=== PATIENT | female | born 1975 | race Caucasian/White ===

== ENCOUNTER 2018-10-01 08:26 | Outpatient (CLI) | payer MEDICAID ==
[2018-10-01 08:42] LABS: BASOPHILS % (AUTO) 0.9 %; EOSINOPHILS # (AUTO) 0.1 10^3/uL (0.0-0.7); EOSINOPHILS % (AUTO) 2.6 %; HGB - HEMOGLOBIN 13.3 g/dL (12.0-16.0); LYMPHOCYTES # (AUTO) 1.8 10^3/uL (1.5-3.5); LYMPHOCYTES % (AUTO) 38.6 %; MEAN CORPUSCULAR HEMOGLOBIN 32.1 pg (27.0-31.0); MEAN CORPUSCULAR HGB CONC 34.1 g/dL (32.0-36.0); MEAN PLATELET VOLUME 8.4 fL (7.9-10.8); MONOCYTES # (AUTO) 0.5 10^3/uL (0.0-1.0); MONOCYTES % (AUTO) 11.4 %; NEUTROPHILS # (AUTO) 2.1 10^3/uL (1.5-6.6); NEUTROPHILS % (AUTO) 46.5 %; PLT - PLATELET COUNT 212 10^3/uL (130-450); RED BLOOD COUNT 4.13 10^6/uL (4.20-5.40); RED CELL DISTRIBUTION WIDTH 12.1 % (12.0-15.0); WHITE BLOOD COUNT 4.6 x10^3/uL (4.8-10.8)
[2018-10-01 08:46] LABS: BILIRUBIN,URINE NEGATIVE (NEGATIVE); GLUCOSE, URINE (UA) NEGATIVE (NEGATIVE); KETONES,URINE (UA) NEGATIVE (NEGATIVE); LEUKOCYTE ESTERASE, URINE NEGATIVE (NEGATIVE); NITRITE,URINE NEGATIVE (NEGATIVE); OCCULT BLOOD,URINE MODERATE (NEGATIVE); PH,URINE 6.5 PH (5.0-7.5); PROTEIN,URINE NEGATIVE (NEGATIVE); UROBILINOGEN,URINE 0.2 (NORMAL) E.U./dL (NORMAL)
[2018-10-01 08:47] LABS: CLARITY,URINE HAZY (CLEAR)
[2018-10-01 09:04] LABS: CHOLESTEROL 169 mg/dL; GLUCOSE,FASTING 93 mg/dL (70-100); HDL CHOLESTEROL 56 mg/dL; LDL CHOLESTEROL,CALCULATED 97 mg/dL; LDL/HDL RATIO 1.7 (<4.4); VLDL CHOLESTEROL 16 mg/dL
[2018-10-01 09:42] LABS: BACTERIA,URINE Rare /HPF (None Seen); RBC,URINE 0-5 /HPF (0-5); SQUAMOUS EPITHELIAL CELL,UR FEW Squamous (<= Few)
== END 2018-10-01 08:27 | disposition home or self-care (01) ==
LOC: LAB 08:26
PROVIDERS: ATTEND Obstetrics & Gynecology
DX: Z13.89 Encounter for screening for other disorder (principal); Z01.419 Encounter for gynecological examination (general) (routine) without abnormal findings; R10.2 Pelvic and perineal pain; Z13.0 Encounter for screening for diseases of the blood and blood-forming organs and certain disorders involving the immune mechanism
CPT/HCPCS: 36415; 80061; 81001; 82947; 83721; 85025; 87086

== ENCOUNTER 2018-10-19 15:48 | Outpatient (CLI) | payer MEDICAID ==
--- NOTE | 2018-10-20 10:58 | Ultrasound Report ---
Reason: PELVIC PAIN Procedure Date: 10/19/2018 Accession Number: [id number] / [id number] Procedure: US - Pelvic w/Transvaginal CPT Code: FULL RESULT: EXAM: PELVIC ULTRASOUND EXAM DATE: 10/19/2018 05:10 PM. CLINICAL HISTORY: Pelvic pain. COMPARISON: None. TECHNIQUE: Realtime transabdominal pelvic scan performed to identify the uterus and adnexa and as an overview of other pelvic structures, followed by transvaginal scan to provide greater detail of the uterus and adnexa, with static image documentation. FINDINGS: Uterus: 10.6 x 5.8 x 6.9 cm, volume 222 cc. Anteverted position. Normal overall size and echotexture. Masses: A few ill-defined myometrial masses are seen measuring 2.4 x 1.8 x 1.9 and 2.3 x 2.1 x 2.8 cm respectively in the left fundus and posterior right fundus respectively. These likely represent fibroids. Endometrium: Focally up to 22 mm. Within the focal thickening is heterogeneous appearance and suggestion of a 1.7 x 1.4 x 1.3 cm structure which questionably demonstrates vascularity, no definite vascular stalk is identified. Cervix: Unremarkable. Right Ovary: 3.4 x 1.8 x 1.5 cm, volume 4.8 cc. A 1.2 x 1.1 x 0.9 cm cyst is identified, likely dominant follicle. Normal echotexture and blood flow. Left Ovary: 3.4 x 2.1 x 2.3 cm, volume 8.5 cc. There is a 2.6 x 1.6 x 1.8 cm complex adnexal cyst. Free Fluid: None. Other: None. IMPRESSION: Abnormal endometrium with suggestion of fundal polyp/mass as described above. Recommend sonohysterogram versus tissue sampling. RADIA
== END 2018-10-19 15:49 | disposition home or self-care (01) ==
LOC: DI 15:48
PROVIDERS: ATTEND Obstetrics & Gynecology
DX: R93.89 Abnormal findings on diagnostic imaging of other specified body structures (principal); R10.2 Pelvic and perineal pain
CPT/HCPCS: 76830; 76856

== ENCOUNTER 2018-12-06 12:07 | Outpatient (CLI) | payer MEDICAID ==
[2018-12-06 12:40] LABS: BASOPHILS % (AUTO) 0.8 %; EOSINOPHILS # (AUTO) 0.2 10^3/uL (0.0-0.7); EOSINOPHILS % (AUTO) 2.7 %; HGB - HEMOGLOBIN 13.4 g/dL (12.0-16.0); LYMPHOCYTES # (AUTO) 1.7 10^3/uL (1.5-3.5); LYMPHOCYTES % (AUTO) 28.8 %; MEAN CORPUSCULAR HEMOGLOBIN 31.7 pg (27.0-31.0); MEAN CORPUSCULAR VOLUME 93.2 fL (81.0-99.0); MEAN PLATELET VOLUME 8.4 fL (7.9-10.8); MONOCYTES # (AUTO) 0.6 10^3/uL (0.0-1.0); MONOCYTES % (AUTO) 10.3 %; NEUTROPHILS # (AUTO) 3.5 10^3/uL (1.5-6.6); NEUTROPHILS % (AUTO) 57.4 %; PLT - PLATELET COUNT 219 10^3/uL (130-450); RED BLOOD COUNT 4.24 10^6/uL (4.20-5.40); RED CELL DISTRIBUTION WIDTH 12.1 % (12.0-15.0)
[2018-12-06 12:49] LABS: BUN - BLOOD UREA NITROGEN 13 mg/dL (6-20); CALCIUM 8.7 mg/dL (8.5-10.3); CARBON DIOXIDE - CO2 24 mmol/L (21-32); CHLORIDE 103 mmol/L (101-111); CREATININE 0.7 mg/dL (0.4-1.0); GFR - MDRD 92 (>89); GLUCOSE 86 mg/dL (70-100); SODIUM 133 mmol/L (135-145)
[2018-12-06 13:10] LABS: HCG,QUALITATIVE BLOOD NEGATIVE
== END 2018-12-06 12:08 | disposition home or self-care (01) ==
LOC: LAB 12:07
PROVIDERS: ATTEND Obstetrics & Gynecology
DX: Z01.818 Encounter for other preprocedural examination (principal); N92.0 Excessive and frequent menstruation with regular cycle
CPT/HCPCS: 36415; 80048; 84703; 85025; 86850; 86900; 86901

== ENCOUNTER 2018-12-08 10:36 | Day surgery (SDC) | payer MEDICAID ==
[2018-12-08] MEDS ORDERED: ceFAZolin 2 GM/50 ML 2 GM/50 ML BAG IV ONE (10:44)
--- NOTE | 2018-12-08 11:02 | ANESTHESIA ---
Pre-Anesthesia VS, & Labs - Diagnosis endometrial polyp - Procedure Myosure hysteroscopy, D &C - NPO >8 hours - Is Patient ?: No Home Medications and Allergies Home Medications: Ambulatory Orders Bupropion HCl [Bupropion Xl] 150 mg PO DAILY 11/29/18 Bupropion HCl [Bupropion Xl] 150 mg PO DAILY 11/29/18 Allergies/Adverse Reactions: Allergies Allergy/AdvReac Type Severity Reaction Status Date / Time No Known Drug Allergies Allergy Verified 11/29/18 13:29 Anes History & Medical History - Anesthetic History Anesthesia Complications: reports: No previous complications (valve surgery at age 6, no furthur issues, denies SOB. Physically active with no symptoms.) - Medical History Cardiovascular: reports: Murmur, Valve disorder Pulmonary: reports: None Gastrointestinal: reports: None Urinary: reports: None Musculoskeletal: reports: None Endocrine/Autoimmune: reports: None Skin: reports: None Smoking Status: Current every day smoker - Surgical History General: Appendectomy Cardiothoracic: Other Gynecologic: Tubal ligation Exam General: Alert Dental: WNL Mouth Opening: Greater than 4 Fingerbreadths Mallampati classification: II Respiratory: Lungs clear Cardiovascular: Regular rate, Other (2/6 systolic murmur) Plan Anesthesia Type: General Consent for Procedure(s) Verified and Reviewed: Yes Code Status: Attempt Resuscitation ASA classification: 2-Mild systemic disease Is this case an emergency?: Yes
[2018-12-08] MEDS ORDERED: LACTATED RINGERS 1,000 ML IV ONE ×2 (11:08→13:01)
[2018-12-08] MEDS ORDERED: BUPIVACAINE 0.25%-EPI 1:200000 PF 30 ML VIAL ONE (12:36)
[2018-12-08] MEDS ORDERED: fentaNYL 100 MCG/2 ML VIAL IVP ONE (12:40)
[2018-12-08] MEDS ORDERED: KETOROLAC 30 MG/ML VIAL IVP ONE (12:40)
[2018-12-08] MEDS ORDERED: MIDAZOLAM 2 MG/2 ML VIAL IVP ONE (12:40)
[2018-12-08] MEDS ORDERED: LIDOCAINE-MPF 2% 5 ML VIAL IM ONE (12:40)
[2018-12-08] MEDS ORDERED: DEXAMETHASONE 4 MG/ML VIAL IVP ONE (12:40)
[2018-12-08] MEDS ORDERED: ONDANSETRON 4 MG/2 ML VIAL IVP ONE (12:40)
[2018-12-08] MEDS ORDERED: PROPOFOL 200 MG/20 ML VIAL IVP ONE (12:40)
[2018-12-08] MEDS ORDERED: oxyCODONE 5 MG TABLET PO PRN (13:12)
[2018-12-08] MEDS ORDERED: LORazepam 2 MG/ML VIAL IVP PRN (13:12)
[2018-12-08] MEDS ORDERED: ONDANSETRON 4 MG/2 ML VIAL IVP PRN (13:12)
[2018-12-08] MEDS ORDERED: HYDROmorphone 0.5 MG/0.5 ML SYRINGE IVP PRN (13:12)
--- NOTE | 2018-12-08 13:17 | OPERATIVE REPORT ---
Operative Report - General Planned Procedure: Hysterscopy with D&C Myosure Pre-Op Diagnosis: Menorrhagia, Submucosal fibriod Procedure Performed: Hysterscopy with D&C resection of endometrial polyps Post Op Diagnosis: Endometrial polyps - Procedure Note Primary Surgeon: Qiunn Weaver MD Anesthesia Provider: Pravin Mabry CRNA Anesthesia Technique: General LMA Pathology: Endometrial polyps IV Fluids (mL): 900 Estimated Blood Loss (mL): 25 Findings: multiple endometrial polyps 77 Ml NS Deficit Complications: none - Other Other Information/Narrative: # [id number]
[2018-12-08 14:16] VITALS: BP 112/72
--- NOTE | 2018-12-08 15:57 | OPERATIVE REPORT ---
DATE OF SERVICE: 12/08/2018 Physician: Quinn Weaver MD PREOPERATIVE DIAGNOSIS: Menorrhagia, suspect submucosal fibroid. POSTOPERATIVE DIAGNOSIS: Menorrhagia, suspect submucosal fibroid. PROCEDURE PERFORMED: Hysteroscopy with dilatation and curettage, and MyoSure resection of endometria l polyps. SURGEON: Quinn Weaver MD ANESTHESIA: Farzana Mabry CRNA ANESTHETIC: General via LMA. INTRAVENOUS FLUIDS: 900 mL ESTIMATED BLOOD LOSS: 25 mL URINE OUTPUT: Patient voided before the procedure. FINDINGS: Uterus sounded to roughly 9 cm. Upon introducing the hysteroscope, there was an exuberant amount of polyp material in the posterior uterus, as well as anterior uterus. Both corners were eas chan visualized and without evidence of any disease. DESCRIPTION OF PROCEDURE: Following adequate general anesthesia via LMA, patient was placed in dorsa l lithotomy position. Timeout was performed, at which point a speculum was placed in the vagina. Th e cervix was visualized, grasped with a single-tooth tenaculum. The uterus was then dilated up to a size 6 mm dilator. At this point, the uterus was sounded and then the video hysteroscope was introdu heriberto without difficulty. Both corners were visualized; however, upon insertion, there was evidence of multiple polyps in the posterior, as well as anterior uterus. The MyoSure was then introduced and t he endometrium was resected in toto. This was carried down to as much of the myometrium as possible. The area was re-photographed and there was an absence of polyps at this time. Patient tolerated th e procedure well and was taken to the recovery room in stable condition. Sponge and needle counts we re correct. TD: 12/08/2018 13:37
== END 2018-12-08 10:37 | disposition home or self-care (01) ==
LOC: SDS 10:36
PROVIDERS: ATTEND Obstetrics & Gynecology
PROC: 0UB98ZZ Excision of Uterus, Via Natural or Artificial Opening Endoscopic (ICD-10-PCS; 2018-12-08)
PROC: 0UDB8ZZ Extraction of Endometrium, Via Natural or Artificial Opening Endoscopic (ICD-10-PCS; principal; 2018-12-08 11:45)
DX: N92.4 Excessive bleeding in the premenopausal period (principal); N84.0 Polyp of corpus uteri; F17.210 Nicotine dependence, cigarettes, uncomplicated
CPT/HCPCS: 58558; J0690; J7120

== ENCOUNTER 2020-12-24 09:10 | Outpatient (CLI) | payer MEDICAID ==
[2020-12-24 12:51] LABS: BASOPHILS % (AUTO) 0.3 %; EOSINOPHILS # (AUTO) 0.2 10^3/uL (0.0-0.7); EOSINOPHILS % (AUTO) 2.5 %; HCT - HEMATOCRIT 40.2 % (37.0-47.0); HGB - HEMOGLOBIN 13.3 g/dL (12.0-16.0); LYMPHOCYTES # (AUTO) 2.1 10^3/uL (1.5-3.5); LYMPHOCYTES % (AUTO) 32.8 %; MEAN CORPUSCULAR HEMOGLOBIN 32.4 pg (27.0-31.0); MEAN CORPUSCULAR HGB CONC 33.1 g/dL (32.0-36.0); MEAN CORPUSCULAR VOLUME 97.8 fL (81.0-99.0); MEAN PLATELET VOLUME 11.1 fL (7.9-10.8); MONOCYTES # (AUTO) 0.7 10^3/uL (0.0-1.0); MONOCYTES % (AUTO) 11.4 %; NEUTROPHILS # (AUTO) 3.3 10^3/uL (1.5-6.6); NEUTROPHILS % (AUTO) 52.7 %; PLT - PLATELET COUNT 275 10^3/uL (130-450); RED BLOOD COUNT 4.11 10^6/uL (4.20-5.40); RED CELL DISTRIBUTION WIDTH 11.4 % (12.0-15.0); WHITE BLOOD COUNT 6.3 x10^3/uL (4.8-10.8)
[2020-12-24 13:00] LABS: ALBUMIN 3.8 g/dL (3.2-5.5); ALBUMIN/GLOBULIN RATIO 1.2 (1.0-2.2); BILIRUBIN,TOTAL 0.9 mg/dL (0.2-1.0); CALCIUM 8.9 mg/dL (8.5-10.3); CREATININE 0.7 mg/dL (0.4-1.0); POTASSIUM 3.8 mmol/L (3.5-5.0); TOTAL PROTEIN 6.9 g/dL (6.7-8.2)
[2020-12-24 13:18] LABS: THYROID STIMULATING HORMONE 2.87 uIU/mL (0.34-5.60)
== END 2020-12-24 09:11 | disposition home or self-care (01) ==
LOC: LAB.N 09:10
PROVIDERS: ATTEND Registered Nurse
DX: Z13.220 Encounter for screening for lipoid disorders (principal); Z87.891 Personal history of nicotine dependence
CPT/HCPCS: 80050

== ENCOUNTER 2021-10-31 16:02 | Outpatient (CLI) | payer MEDICAID ==
[2021-10-31 20:44] LABS: BILIRUBIN,URINE NEGATIVE (NEGATIVE); GLUCOSE, URINE (UA) NEGATIVE (NEGATIVE); KETONES,URINE (UA) NEGATIVE (NEGATIVE); LEUKOCYTE ESTERASE, URINE NEGATIVE (NEGATIVE); NITRITE,URINE NEGATIVE (NEGATIVE); OCCULT BLOOD,URINE NEGATIVE (NEGATIVE); PROTEIN,URINE NEGATIVE (NEGATIVE); UROBILINOGEN,URINE 0.2 (NORMAL) E.U./dL (NORMAL)
[2021-10-31 20:45] LABS: CLARITY,URINE CLEAR (CLEAR)
[2021-10-31 20:46] LABS: BASOPHILS % (AUTO) 0.3 %; EOSINOPHILS # (AUTO) 0.2 10^3/uL (0.0-0.7); EOSINOPHILS % (AUTO) 3.2 %; HCT - HEMATOCRIT 41.2 % (37.0-47.0); HGB - HEMOGLOBIN 13.4 g/dL (12.0-16.0); LYMPHOCYTES # (AUTO) 2.8 10^3/uL (1.5-3.5); MEAN CORPUSCULAR HEMOGLOBIN 30.9 pg (27.0-31.0); MEAN CORPUSCULAR HGB CONC 32.5 g/dL (32.0-36.0); MEAN CORPUSCULAR VOLUME 94.9 fL (81.0-99.0); MEAN PLATELET VOLUME 10.8 fL (7.9-10.8); MONOCYTES # (AUTO) 0.5 10^3/uL (0.0-1.0); MONOCYTES % (AUTO) 8.2 %; NEUTROPHILS # (AUTO) 2.7 10^3/uL (1.5-6.6); PLT - PLATELET COUNT 254 10^3/uL (130-450); RED BLOOD COUNT 4.34 10^6/uL (4.20-5.40); RED CELL DISTRIBUTION WIDTH 11.6 % (12.0-15.0); WHITE BLOOD COUNT 6.2 x10^3/uL (4.8-10.8)
[2021-10-31 21:08] LABS: ALBUMIN 3.8 g/dL (3.2-5.5); ALBUMIN/GLOBULIN RATIO 1.3 (1.0-2.2); ALKALINE PHOSPHATASE 57 IU/L (42-121); ALT ALANINE AMINOTRANSFERASE 18 IU/L (10-60); AST ASPARTATE AMINOTRANSFERASE 21 IU/L (10-42); BILIRUBIN,TOTAL 0.9 mg/dL (0.2-1.0); BUN - BLOOD UREA NITROGEN 18 mg/dL (6-20); CALCIUM 9.2 mg/dL (8.5-10.3); CARBON DIOXIDE - CO2 28 mmol/L (21-32); CHLORIDE 103 mmol/L (101-111); CHOL/HDL RATIO 3.2 (<4.4); CHOLESTEROL 189 mg/dL; CREATININE 0.7 mg/dL (0.4-1.0); GFR - MDRD 90 (>89); GLUCOSE 92 mg/dL (70-100); HDL CHOLESTEROL 59 mg/dL; LDL CHOLESTEROL,CALCULATED 106 mg/dL; LDL/HDL RATIO 1.8 (<4.4); SODIUM 139 mmol/L (135-145); TOTAL PROTEIN 6.7 g/dL (6.7-8.2); TRIGLYCERIDES 118 mg/dL; VLDL CHOLESTEROL 24 mg/dL
[2021-10-31 21:14] LABS: THYROID STIMULATING HORMONE 2.84 uIU/mL (0.34-5.60)
== END 2021-10-31 16:03 | disposition home or self-care (01) ==
LOC: LAB.N 16:02
PROVIDERS: ATTEND Registered Nurse
DX: R10.11 Right upper quadrant pain (principal); Z13.220 Encounter for screening for lipoid disorders; Z13.0 Encounter for screening for diseases of the blood and blood-forming organs and certain disorders involving the immune mechanism
CPT/HCPCS: 36415; 80050; 80061; 81001; 81003; 83721; 87086

== ENCOUNTER 2021-11-01 16:44 | Outpatient (CLI) | payer MEDICAID ==
--- NOTE | 2021-11-01 17:53 | Ultrasound Report ---
PROCEDURE: Abdomen Limited INDICATIONS: RUQ ABD PAIN TECHNIQUE: Real-time focused scanning was performed of the abdomen, with image documentation. COMPARISON: None FINDINGS: The liver demonstrates normal size. The liver demonstrates moderately increased echogeni city, which limits ultrasound sensitivity for detection of masses. No gallstones or sludge can be seen. The gallbladder wall does not appear thickened. There is no spec ific pericholecystic fluid. The sonographic Ochoa's sign is negative. No biliary ductal dilatation is seen. The common bile duct measures 2 mm. The visualized pancreas is within normal limits. The visualized right kidney is unremarkable. IMPRESSION: The gallbladder demonstrates a normal sonographic appearance. No biliary dilatation is s een. Increased liver echogenicity is seen. This is nonspecific, yet it is most commonly attributed to fatt y infiltration. Reviewed by: Sven Dumont MD on 11/01/2021 4:51 PM [place] Approved by: Sven Dumont MD on 11/01/2021 4:51 PM [facility] Station ID: [id number]
== END 2021-11-01 16:45 | disposition home or self-care (01) ==
LOC: DI 16:44
PROVIDERS: ATTEND Registered Nurse
DX: R10.11 Right upper quadrant pain (principal)

== ENCOUNTER 2021-12-19 11:25 | Outpatient (CLI) | payer MEDICAID ==
--- NOTE | 2021-12-19 15:29 | XRAY Report ---
PROCEDURE: Cervical Spine Complete INDICATIONS: NUMBNESS OF HANDS TECHNIQUE: 5 views of the cervical spine acquired. COMPARISON: None. FINDINGS: Bones: No fractures or dislocations to the vertebra level. Oblique images demonstrate no bony fora jesus stenoses. Soft tissues: No prevertebral soft tissue swelling. IMPRESSION: Normal examination. No osseous lesion. If there is continued clinical concern for pathology, then MRI should be considere d for further evaluation. Reviewed by: Briana Chauhan MD, PhD on 12/19/2021 3:28 PM PDT Approved by: Briana Chauhan MD, PhD on 12/19/2021 3:28 PM PDT Station ID: [id number]
== END 2021-12-19 11:26 | disposition home or self-care (01) ==
LOC: DI 11:25
PROVIDERS: ATTEND Physician Assistant
DX: R20.2 Paresthesia of skin (principal)

== ENCOUNTER 2022-07-30 08:00 | Outpatient (CLI) | payer MEDICAID ==
[2022-07-30 16:01] LABS: BILIRUBIN,URINE NEGATIVE (NEGATIVE); GLUCOSE, URINE (UA) NEGATIVE (NEGATIVE); KETONES,URINE (UA) NEGATIVE (NEGATIVE); LEUKOCYTE ESTERASE, URINE NEGATIVE (NEGATIVE); NITRITE,URINE POSITIVE (NEGATIVE); OCCULT BLOOD,URINE NEGATIVE (NEGATIVE); PROTEIN,URINE NEGATIVE (NEGATIVE); UROBILINOGEN,URINE 0.2 (NORMAL) E.U./dL (NORMAL)
[2022-07-30 16:03] LABS: CLARITY,URINE HAZY (CLEAR)
[2022-07-30 16:14] LABS: BACTERIA,URINE Many /HPF (None Seen); RBC,URINE 0-5 /HPF (0-5); SQUAMOUS EPITHELIAL CELL,UR MOD Squamous (<= Few)
== END 2022-07-30 23:59 | disposition home or self-care (01) ==
LOC: LAB.WC 08:00
PROVIDERS: ATTEND Nurse Practitioner
DX: R30.0 Dysuria (principal)
CPT/HCPCS: 81001; 87077; 87086; 87181

== ENCOUNTER 2022-08-11 13:03 | Outpatient (CLI) | payer MEDICAID ==
--- NOTE | 2022-08-12 12:17 | Mammography Report ---
BILATERAL DIGITAL SCREENING MAMMOGRAM 3D/2D: 08/11/2022 CLINICAL: Routine screening. Comparison is made to exam dated: 07/22/2016 mammogram - [facility]. Both breasts are heterogeneously dense, which may obscure small masses (category c / 51-75% glandular tissue). No significant masses, calcifications, or other findings are seen in either breast. There has been no significant interval change. IMPRESSION: NEGATIVE There is no mammographic evidence of malignancy. A 1 year screening mammogram is recommended. Based on the Tyrer Cuzick model (a risk assessment model) the patients lifetime risk is 11.3% and he r 10 year risk is 2.1%. According to the ACR, ACS, and NCCN guidelines, an annual breast MRI exam isi ng with mammogram is recommended if the patients lifetime risk is 20% or greater. This exam was interpreted at Station ID: [id number]. NOTE: For mammograms, a report in lay terms will be sent to the patient. Approximately 15% of breast malignancies will not be visualized mammographically. In the management of a palpable breast mass, a negative mammogram must not discourage biopsy of a clinically suspicious lesion. Electronically Signed By: López galindo/jorge:08/11/2022 16:59:00 ACR BI-RADS Category 1: Negative 3341F PARENCHYMAL PATTERN: (D) - The breast(s) demonstrate(s) heterogeneously dense fibroglandular felipa littlejohn. BI-RADS CATEGORY: (1) - 1 RECOMMENDATION: (ANNUAL) - Recommend routine annual screening mammography. [id number] 1 year screening LATERALITY: (B)
== END 2022-08-11 13:04 | disposition home or self-care (01) ==
LOC: DI.N 13:03
PROVIDERS: ATTEND Nurse Practitioner
DX: Z12.31 Encounter for screening mammogram for malignant neoplasm of breast (principal)

== ENCOUNTER 2022-08-25 18:48 | Outpatient (CLI) | payer MEDICAID ==
--- NOTE | 2022-08-26 14:53 | Ultrasound Report ---
PROCEDURE: Pelvic w/Transvaginal INDICATIONS: PELVIC PAIN TECHNIQUE: Real-time scanning was performed of the pelvic organs, with image documentation. Additional endovagi nal scanning was necessary due to incomplete visualization of the adnexal and endometrial structures by transabdominal scanning. COMPARISON: 10/19/2018 FINDINGS: The uterine body measures 4.7 x 5.5 x 9.4 cm. Multiple uterine fibroids. Right anterior intramural ut erine fibroid measuring 2.2 cm appears slightly smaller when compared with the prior exam. Midline an terior submucosal fibroid measures 1.2 cm, also slightly decreased from prior study. Left anterior in tramural fibroid measures 1.9 cm, decreased from prior study. Both ovaries normal in size and appearance. IMPRESSION: No acute finding. Multiple fibroids slightly decreased from prior. Reviewed by: Homero Luna MD on 08/26/2022 1:52 PM [facility] Approved by: Homero Luna MD on 08/26/2022 1:52 PM [facility] Station ID: [id number]
== END 2022-08-25 18:49 | disposition home or self-care (01) ==
LOC: DI 18:48
PROVIDERS: ATTEND Nurse Practitioner
DX: D25.1 Intramural leiomyoma of uterus (principal); D25.0 Submucous leiomyoma of uterus

== ENCOUNTER 2024-05-14 12:48 | Outpatient (CLI) | payer MEDICAID ==
--- NOTE | 2024-05-15 23:12 | Ultrasound Report ---
PROCEDURE: Pelvic w/Transvaginal INDICATIONS: ABN UTERINE BLEEDING TECHNIQUE: Real-time scanning was performed of the pelvic organs, with image documentation. Additional endovagi nal scanning was necessary due to incomplete visualization of the adnexal and endometrial structures by transabdominal scanning. COMPARISON: Pelvic ultrasound 08/25/2022. FINDINGS: Uterus: Uterus is anteverted and normal in size at 8.5 x 5.7 x 4.5 cm. The myometrium is heterogene ous. The endometrium measures 5 mm in combined thickness. Right anterior intramural fibroid measuring 2.2 x 2.2 x 1.7 cm. Mid anterior intramural fibroid measuring 0.9 x 0.7 x 0.6 cm. Ovaries: The right ovary measures 2.4 x 1.7 x 1.5 cm, with a calculated ovarian volume of 3 cc. The left ovary measures 2.9 x 1.1 x 1.1 cm, with a calculated ovarian volume of 2 cc. The ovaries have a normal sonographic appearance. Less than 12 follicles can be seen in each ovary. No adnexal maegan s are seen. No cystic lesions measuring greater than 3 cm. Other: No pathologic free abdominal or pelvic fluid. IMPRESSION: 1. Endometrium measures 5 mm. 2. Small intramural fibroids. Largest measuring 2.2 cm. 3. No significant ovarian cyst. Reviewed by: Alex Ocampo MD on 05/15/2024 11:10 PM PDT Approved by: Alex Ocmapo MD on 05/15/2024 11:10 PM PDT Station ID: [id number]
== END 2024-05-14 12:49 | disposition home or self-care (01) ==
LOC: DI 12:48
PROVIDERS: ATTEND Obstetrics & Gynecology
DX: N93.9 Abnormal uterine and vaginal bleeding, unspecified (principal); D25.1 Intramural leiomyoma of uterus

== ENCOUNTER 2024-05-14 13:17 | Emergency (ER) | payer MEDICAID ==
[2024-05-14 13:28] VITALS: O2SAT 100
--- NOTE | 2024-05-14 13:51 | XRAY Report ---
PROCEDURE: Foot 3+V LT INDICATIONS: Trauma TECHNIQUE: 3 views of the foot were acquired. COMPARISON: None. FINDINGS: Bones: No fractures or dislocations. No suspicious bony lesions. Incidental note is made of a bipar tite lateral sesamoid bone. Incidental note is made of an accessory ossicle, an os peroneum. Soft tissues: No tibiotalar joint effusion. Achilles tendon appears normal. IMPRESSION: No definite, displaced fracture is seen. Please correlate with focal tenderness. If there is point tenderness (or other clinical concern for a fracture not seen on these plain films) then please consider a dedicated CT study or a short term fo llow up plain film series for further evaluation. Reviewed by: Sven Dumont MD on 05/14/2024 12:50 PM [facility] Approved by: Sven Dumont MD on 05/14/2024 12:50 PM [facility] Station ID: [id number]
--- NOTE | 2024-05-14 14:01 | ED Physician Documentation ---
PD HPI LOWER EXT INJURY - Stated complaint Stated Complaint: LT FOOT PX - Chief complaint Chief Complaint: Ext Problem - Additional information Additional information: 48-year-old female with history of bursitis in both knees, heart murmur, heart valve disorder presents emergency department for atraumatic left foot pain. Patient says that she woke in the [place] with pain to the top of her left foot no known injury she says that her large heavy dog does sleep in bed with her but she cannot think of any thing or injury that happened to the top of her left foot. She is taken ibuprofen as taken the edge off but has not alleviated the pain. 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 Cardiovascular: Other - Present Medications Home Medications: Ambulatory Orders Medication Instructions Recorded Confirmed buPROPion HCL [Bupropion Xl] 150 mg PO DAILY 11/29/18 12/08/18 - Allergies Allergies/Adverse Reactions: Allergies Allergy/AdvReac Type Severity Reaction Status Date / Time No Known Drug Allergies Allergy Verified 05/14/24 13:22 - Social History Does the pt smoke?: No Smoking Status: Never smoker Does the pt drink ETOH?: No Does the pt have substance abuse?: No - Immunizations Immunizations are current?: Yes - POLST Patient has POLST: No PD ED PE NORMAL - Vitals Vital signs reviewed: Yes - General General: Alert and oriented X 3, No acute distress, Well developed/nourished - Derm Derm: Other (no brusing, erythema, or swelling to left foot) - Extremities Extremities: Other (tenderness to dorsalis left foot, strong doralis pedis pulse, CMS intact, full ROM to all toes and ankle) Results - Vitals Vitals: Vital Signs - 24 hr 05/14/24 05/14/24 13:22 14:40 Temperature 36.8 C 36.8 C Heart Rate 78 72 Respiratory 16 16 Rate Blood Pressure 120/84 H 118/80 O2 Saturation 100 100 Oxygen O2 Source Room air - Rads (name of study) left foot Relevant Findings:: Final report received, EMP independent interpretation of test, Other (no acute bony abnormalities or findings. ) PD Medical Decision Making - ED course ED course: 48-year-old female presents emergency department for atraumatic left foot pain. Patient has had no fevers or chills there is no ecchymosis no swelling no erythema concerning for possible infection. I considered gout but given that it is not over any joint this is less likely. I also considered cellulitis but again there is no erythema it is not warm to the touch do not believe that this is related to any sort of acute infection. Patient said that this has happened before with her knees and has self resolved she was given Toradol here in the emergency department as well as Tylenol and she did have improvement of symptoms. Patient told to continue to have ibuprofen at home she is placed in a walking shoe for more support. Return precautions given patient safe for discharge at this time all questions answered Departure - Departure Disposition: 01 Home, Self Care Clinical Impression: Left foot pain, Metatarsalgia of left foot Instructions: Tendinitis Foot, Tendonitis Foot Tx Comments: We have given you a Toradol shot and Tylenol here in the emergency department and placed you in a walking shoe. You can alternate between 1000mg of Tylenol every 8 hours and 500mg Aleve every 12 hours. Apply ice 20 Minutes on 1 hour off and keep your foot elevated to help with the pain discomfort. Please follow-up with your primary care provider as needed if you are continuing to have pain after 1 week. Please come back to the ER for starting develop any fevers or chills or any other concerning worsening symptoms. Forms: PCP List Discharge Date/Time: 05/14/24 14:40
[2024-05-14] MEDS: ACETAMINOPHEN 500 MG TABLET PO STA (14:08)
[2024-05-14] MEDS: KETOROLAC 30 MG/ML VIAL IM STA (14:08)
[2024-05-14 14:45] VITALS: BP 118/80
== END 2024-05-14 14:40 | disposition home or self-care (01) ==
LOC: ED 13:17
DX: M77.42 Metatarsalgia, left foot (principal); N93.9 Abnormal uterine and vaginal bleeding, unspecified; D25.1 Intramural leiomyoma of uterus
CPT/HCPCS: 73630; 76830; 76856; 96372; 99283; 99284; A9270